=== PATIENT | female | born 1985 ===

== ENCOUNTER 2020-04-13 16:34 | Emergency (ER) | payer OTHER ==
--- NOTE | 2020-04-13 17:00 | EDM.PDOCBH ---
ED HPI GENERAL MEDICAL PROBLEM - General Chief Complaint: Drug or Alcohol Abuse Stated Complaint: MEDICAL Time Seen by Provider: 04/13/20 16:42 Source of Information: Reports: Patient History Limitations: Reports: No Limitations - History of Present Illness INITIAL COMMENTS - FREE TEXT/NARRATIVE: 34 yo female presents with [facility] under arrest. She is worried that she is withdrawing. Last use was 24 hours ago and was meth and heroin. [facility] does not have a Suboxone program. Current complains are anxiety, nausea with dry heaving, poor sleep. She states she has never withdrawn and is very anxious about withdrawing. COWS score of 5. Back Pain Score (Numeric/FACES): 4 - Related Data Allergies Allergy/AdvReac Type Severity Reaction Status Date / Time No Known Allergies Allergy Verified 04/13/20 16:40 Home Meds: Home Meds NK [No Known Home Meds] 04/13/20 [History] Past Medical History Psychiatric History: Reports: Addiction Social & Family History - Tobacco Use Smoking Status *Q: Current Every Day Smoker Years of Tobacco use: 20 Packs/Tins Daily: 1 - Caffeine Use Caffeine Use: Reports: None - Recreational Drug Use Recreational Drug Use: Yes Drug Use in Last 12 Months: Yes Recreational Drug Type: Reports: Heroin, Methamphetamine Recreational Drug Use Frequency: Daily ED ROS GENERAL - Review of Systems Review Of Systems: See Below Constitutional: Reports: Chills, Fatigue. Denies: Fever HEENT: Denies: Sinus Problem Respiratory: Denies: Shortness of Breath, Wheezing Cardiovascular: Denies: Chest Pain GI/Abdominal: Reports: Nausea. Denies: Diarrhea, Vomiting ED EXAM, BEHAVIORAL HEALTH - Physical Exam Exam: See Below Exam Limited By: No Limitations General Appearance: Alert, WD/WN, No Apparent Distress Head: Atraumatic, Normocephalic Neck: Normal Inspection, Supple, Non-Tender, Full Range of Motion. No: Lymphadenopathy (R), Lymphadenopathy (L) Respiratory/Chest: No Respiratory Distress, Lungs Clear, Normal Breath Sounds, No Accessory Muscle Use, Chest Non-Tender Cardiovascular: Regular Rate, Rhythm, No Murmur GI/Abdominal: Soft, Non-Tender Neurological: Alert, Normal Mood/Affect Psychiatric: Alert, Other (anxious) Skin Exam: Warm, Dry, Intact COURSE, BEHAVIORAL HEALTH COMP - Course Vital Signs: Last Vital Signs Temp 36.6 C 04/13/20 16:43 Pulse 69 04/13/20 16:43 Resp 20 04/13/20 16:43 BP 122/77 04/13/20 16:43 Pulse Ox 100 04/13/20 16:43 Orders, Labs, Meds: Medications Discontinued Medications Generic Name Dose Route Start Last Admin Trade Name Elaina PRN Reason Stop Dose Admin Cyclobenzaprine HCl 10 mg 04/13/20 17:09 04/13/20 17:15 Flexeril PO 04/13/20 17:10 10 mg ONETIME ONE Administration Lorazepam 1 mg 04/13/20 17:08 04/13/20 17:15 Ativan PO 04/13/20 17:09 1 mg ONETIME ONE Administration Ondansetron HCl 4 mg 04/13/20 17:08 04/13/20 17:15 Zofran Odt PO 04/13/20 17:09 4 mg ONETIME ONE Administration Departure - Departure Time of Disposition: 17:20 Disposition: Home, Self-Care 01 Condition: Good Clinical Impression: Drug dependence - Discharge Information *PRESCRIPTION DRUG MONITORING PROGRAM REVIEWED*: Not Applicable *COPY OF PRESCRIPTION DRUG MONITORING REPORT IN PATIENT [place]: Not Applicable Referrals: PCP,None [Primary Care Provider] - Forms: ED Department Discharge Additional Instructions: YOu are currently scoring very low on the withdrawal scale to prison medicine: anticipated symptoms: nausea, muscle cramping, anxiety, diarrhea and pain. medicate with standing order symptom management Sepsis Event Note (ED) - Evaluation Sepsis Screening Result: No Definite Risk - Focused Exam Vital Signs: Vital Signs Temp Pulse Resp BP Pulse Ox 04/13/20 16:43 36.6 C 69 20 122/77 100
[2020-04-13] MEDS ORDERED: Ondansetron 4 MG Tab.DIS PO ONE (17:08)
[2020-04-13] MEDS ORDERED: LORazepam 1 MG Tab PO ONE (17:08)
[2020-04-13] MEDS ORDERED: Cyclobenzaprine 10 MG Tab PO ONE (17:09)
== END 2020-04-13 17:44 ==
LOC: JP.ED 16:34
DX: F15.20 Other stimulant dependence, uncomplicated (principal); F11.20 Opioid dependence, uncomplicated; F17.210 Nicotine dependence, cigarettes, uncomplicated
CPT/HCPCS: 99284; A9270